=== PATIENT | female | born 1950 | race Caucasian/White ===

== ENCOUNTER 2018-09-28 07:38 | Day surgery (SDC) | payer MEDICARE, MEDICAID ==
[2018-09-28] MEDS ORDERED: MIDAZOLAM 2 MG/2 ML INJ ONE (09:46)
[2018-09-28] MEDS ORDERED: PROPOFOL INJ 200 MG/20 ML VIAL IV ONE (09:46)
[2018-09-28] MEDS ORDERED: PROMETHAZINE HCL INJ 25 MG/1 ML VIAL IV PRN ×3 (10:07→10:52)
[2018-09-28] MEDS ORDERED: DIPHENHYDRAMINE HCL 50 MG/ML VIAL IV PRN (10:07)
[2018-09-28] MEDS ORDERED: FENTANYL CITRATE INJ/PF 100 MCG/2 ML AMPUL IV PRN ×3 (10:07)
[2018-09-28] MEDS ORDERED: OXYCODONE-ACETAMINOPHEN 5-325 MG TABLET PO PRN ×2 (10:07)
[2018-09-28] MEDS ORDERED: MEPERIDINE HCL/PF INJ 25 MG/1 ML DISP.SYRIN IV PRN (10:07)
--- NOTE | 2018-09-28 10:23 | Operative Report ---
Operative Report DATE OF SURGERY: 09/28/18 Operative Report: The risks, benefits and alternatives of the procedure including the risk of bleeding, perforation requiring surgery have been explained to the patient in detail and informed consent is obtained. The patient is taken back to the operating room and placed in a left, lateral decubital position. Timeout was called. Propofol medication is administered. Rectal examination is done which did not reveal any masses, tears or fissures. An Olympus videoscope was introduced into the patient's rectum. It is carefully advanced all the way to the cecum. The cecum was identified by the usual anatomical landmarks including the ileocecal valve as well as the appendiceal office. However the prep on the right side of the colon is not as good. There is solid fecal material present. This was attempted to be irrigated. From this point on the scope was then seq uentially pulled back via the various segments of the colon including the ascending colon, hepatic flexure, transverse colon, splenic flexure, descending colon and finally into the rectosigmoid portions of the colon. Retroflexion maneuver was performed. PREOPERATIVE DIAGNOSIS: Personal history of polyp POSTOPERATIVE DIAGNOSIS: Rectal polyp that was removed via snare polypectomy and retrieved. Internal hemorrhoids. Random biopsies taken in the right side of the colon to rule out lymphocytic, microscopic, collagenous colitis. OPERATION: Colonoscopy with snare polypectomy. Colonoscopy with biopsy SURGEON: MAGDY SPICER ANESTHESIA: LMAC TISSUE REMOVED OR ALTERED: As noted above. COMPLICATIONS: None. ESTIMATED BLOOD LOSS: None. INTRAOPERATIVE FINDINGS: As noted above. PROCEDURE: Patient tolerated the procedure well. No immediate postprocedure complications are noted. Patient discharged in good condition. Discharge date 09/28/2018. Discharge diet: Regular. Discharge activity: Regular. 2-3-week follow-up to discuss findings. Patient is instructed to call the office or proceed to the emergency room should there be any further problems or questions. Wait on the pathology. 3-5-year surveillance colonoscopy. Depending on the pathology of the polyp
[2018-09-28] MEDS ORDERED: ACETAMINOPHEN 325 MG TABLET PO PRN (10:51)
[2018-09-28] MEDS ORDERED: SIMETHICONE 80 MG TAB.CHEW PO PRN (10:52)
[2018-09-28 11:48] VITALS: BP 122/50
== END 2018-09-28 11:30 | disposition home or self-care (01) ==
LOC: OROUT 07:38
PROVIDERS: ATTEND Internal Medicine Gastroenterology
DX: Z12.11 Encounter for screening for malignant neoplasm of colon (principal); K63.5 Polyp of colon; K64.8 Other hemorrhoids; Z86.010 Personal history of colon polyps; E78.5 Hyperlipidemia, unspecified; J44.9 Chronic obstructive pulmonary disease, unspecified; M10.9 Gout, unspecified; E55.9 Vitamin D deficiency, unspecified; G47.33 Obstructive sleep apnea (adult) (pediatric); G40.909 Epilepsy, unspecified, not intractable, without status epilepticus; I34.0 Nonrheumatic mitral (valve) insufficiency; I35.0 Nonrheumatic aortic (valve) stenosis; I37.1 Nonrheumatic pulmonary valve insufficiency; I11.0 Hypertensive heart disease with heart failure; I50.30 Unspecified diastolic (congestive) heart failure; Z79.899 Other long term (current) drug therapy
CPT/HCPCS: 45385; 36415; 84132; 88305 ×2; J2250; J2704; 811

== ENCOUNTER 2019-04-02 09:11 | Emergency (ER) | payer MEDICARE, MEDICAID ==
--- NOTE | 2019-04-02 09:26 | ER Document Report ---
ED Medical Screen (RME) - General Chief Complaint: Seizure Stated Complaint: POSSIBLE SEIZURE Time Seen by Provider: 04/02/19 09:22 Primary Care Provider: DAVID MAYFIELD MD [Primary Care Provider] - Follow up as needed Information source: Patient Notes: Patient presents stating that she had a seizure this morning at 8 AM. Patient states that she has been compliant with taking her antiepileptic medication. Patient denies any changes in her doses of medication. Patient states she is been having 1-2 seizures a day for the past week I have greeted and performed a rapid initial assessment of this patient. A comprehensive ED assessment and evaluation of the patient, analysis of test results and completion of the medical decision making process will be conducted by additional ED providers. TRAVEL OUTSIDE OF THE [place] IN LAST 30 DAYS: No - Related Data Allergies/Adverse Reactions: No Known Allergies Allergy (Verified 04/02/19 09:24) Past Medical History - Social History Chew tobacco use (# tins/day): No Frequency of alcohol use: None Drug Abuse: None - Past Medical History Cardiac Medical History: Reports: Hx Hypertension - on meds Denies: Hx Coronary Artery Disease, Hx Heart Attack Pulmonary Medical History: Denies: Hx Asthma, Hx Bronchitis, Hx COPD, Hx Pneumonia Neurological Medical History: Reports: Hx Seizures - on meds-last week. 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
[2019-04-02 10:54] LABS: ABSOLUTE BASOPHILS # (AUTO) 0.1 10^3/uL (0.0-0.2); ABSOLUTE EOSINOPHILS # (AUTO) 0.1 10^3/uL (0.0-0.6); ABSOLUTE LYMPHOCYTES (AUTO) 2.3 10^3/uL (0.5-4.7); ABSOLUTE MONOCYTES (AUTO) 0.6 10^3/uL (0.1-1.4); BASOPHILS % (AUTO) 0.7 % (0-2); EOSINOPHILS % (AUTO) 1.1 % (0-6); HEMATOCRIT 39.3 % (36.0-47.0); HEMOGLOBIN 13.1 g/dL (12.0-15.5); LYMPHOCYTES % (AUTO) 23.1 % (13-45); MEAN CORPUSCULAR HEMOGLOBIN 31.2 pg (27.0-33.4); MEAN CORPUSCULAR HGB CONC 33.3 g/dL (32.0-36.0); MEAN CORPUSCULAR VOLUME 94 fl (80-97); MONOCYTES % (AUTO) 5.9 % (3-13); PLATELET COUNT 220 10^3/uL (150-450); RED CELL DISTRIBUTION WIDTH 13.7 % (11.5-14.0); SEGMENTED NEUTROPHILS % (AUTO) 69.2 % (42-78); TOTAL CELLS COUNTED % (AUTO) 100 %; WHITE BLOOD COUNT 10.1 10^3/uL (4.0-10.5)
--- NOTE | 2019-04-02 11:04 | RADIOLOGY REPORT (SQ) ---
EXAM DESCRIPTION: KNEE BILATERAL 1-2 VIEWS COMPLETED DATE/TIME: 04/02/2019 10:55 am REASON FOR STUDY: fall COMPARISON: None. NUMBER OF VIEWS: Two views right knee. Two views left knee. TECHNIQUE: AP and lateral radiographic images acquired of the right and left knee. LIMITATIONS: None. FINDINGS: MINERALIZATION: Normal. BONES: Bilateral total knee replacements. No fracture. JOINT: No effusion. SOFT TISSUES: No soft tissue swelling. No radio-opaque foreign body. OTHER: No other significant finding. IMPRESSION: Bilateral total knee replacements. No fracture. TECHNICAL DOCUMENTATION: JOB ID: [id number] [employer]- All Rights Reserved Reading location - IP/workstation name: [email or web address]
[2019-04-02 11:07] LABS: ALKALINE PHOSPHATASE 51 U/L (38-126); ANION GAP 11 (5-19); ASPARTATE AMINO TRANSFERASE 51 U/L (14-36); BILIRUBIN,DIRECT 0.2 mg/dL (0.0-0.4); BILIRUBIN,TOTAL 0.3 mg/dL (0.2-1.3); BLOOD UREA NITROGEN 19 mg/dL (7-20); CARBON DIOXIDE 29 mmol/L (22-30); CHLORIDE 101 mmol/L (98-107); GLUCOSE 125 mg/dL (75-110); POTASSIUM 3.5 mmol/L (3.6-5.0); TOTAL PROTEIN 6.7 g/dL (6.3-8.2)
--- NOTE | 2019-04-02 12:28 | ER Document Report ---
ED General - General Chief Complaint: Probable Seizure Stated Complaint: POSSIBLE SEIZURE Time Seen by Provider: 04/02/19 09:22 Primary Care Provider: DAVID MAYFIELD MD [Primary Care Provider] - Follow up as needed TRAVEL OUTSIDE OF THE [place] IN LAST 30 DAYS: No - HPI Notes: Patient is a 68-year-old female who presents emergency department. She states she has "mall" seizures. She states that her body shakes, but she is awake and alert during them. She is unable to stand up, but is able to perform some tasks. She states she is taking her medications as prescribed. I asked her who her neurologist is, she states she does not have one. She states that at one point she had an EEG, but has never heard the results of it. She has some knee pain, but otherwise denies any other acute complaints or concerns. She does not drive. - Related Data Allergies/Adverse Reactions: No Known Allergies Allergy (Verified 04/02/19 09:24) Past Medical History - General Information source: Patient - Social History Smoking Status: Never Smoker Chew tobacco use (# tins/day): No Frequency of alcohol use: None Drug Abuse: None Family History: Reviewed & Not Pertinent Patient has suicidal ideation: No Patient has homicidal ideation: No - Past Medical History Cardiac Medical History: Reports: Hx Hypertension - on meds Denies: Hx Coronary Artery Disease, Hx Heart Attack Pulmonary Medical History: Denies: Hx Asthma, Hx Bronchitis, Hx COPD, Hx Pneumonia Neurological Medical History: Reports: Hx Seizures - on meds-last week. Denies: Hx Cerebrovascular Accident Musculoskeletal Medical History: Denies Hx Arthritis - Immunizations Hx Diphtheria, Pertussis, Tetanus Vaccination: Yes Review of Systems - Review of Systems Constitutional: No symptoms reported EENT: No symptoms reported Cardiovascular: No symptoms reported Respiratory: No symptoms reported Gastrointestinal: No symptoms reported Genitourinary: No symptoms reported Musculoskeletal: See HPI Skin: No symptoms reported Neurological/Psychological: See HPI Physical Exam - Vital signs Vitals: Temp Pulse Resp BP Pulse Ox 98.6 F 92 16 148/65 H 95 04/02/19 09:20 04/02/19 09:20 04/02/19 09:20 04/02/19 09:20 04/02/19 09:20 - Notes Notes: Vital signs reviewed, please refer to chart. Head is normocephalic, atraumatic. Pupils equal round, reactive to light. Neck is supple without meningismus. Heart is regular rate and rhythm. Lungs are clear to auscultation bilaterally. Abdomen is soft, nontender, normoactive bowel sounds throughout. Extremities without cyanosis, clubbing. Posterior calves are nontender. Peripheral pulses are equal. Skin is warm and dry. Patient is awake, alert, oriented x3. Cranial nerves II - XII are grossly intact without focal neurological deficits. Strength is plus 5 out of 5 bilateral upper and lower extremities. Sensation is intact. Reflexes symmetrical. Intact [id number], rapid alternating movements, [id number]. Course - Re-evaluation Re-evalutation: 04/02/19 12:28 Patient presents emergency department for evaluation. Laboratory investigations and imaging were obtained as above, found to be normal. Patient is remained stable. She has had no seizure activity while here. She is Brad on seizure medications. She is being treated appropriately. She does not drive. She does not have a neurologist or an EEG result. At this time, however, she is completely neurologically intact. If these are seizures, they are likely partial and focal only. She is certainly not having grand mals at this time. She has a primary care provider, who is been caring for the seizures, will have her follow-up with primary care this week, continue to seek out neurology referral. Patient is amenable to this plan. Return to the ED with worsening or concerning symptoms of any sort. - Vital Signs Vital signs: Temp Pulse Resp BP Pulse Ox 98.6 F 92 16 132/56 H 94 04/02/19 09:20 04/02/19 09:20 04/02/19 13:01 04/02/19 13:00 04/02/19 13:01 - Laboratory Result Diagrams: 04/02/19 10:39 04/02/19 10:39 Laboratory results interpreted by me: 04/02/19 10:39 Potassium 3.5 L Glucose 125 H AST 51 H - Diagnostic Test Radiology reviewed: Reports reviewed Radiology results interpreted by me: 04/02/19 12:29 Knee X-Ray 04/02/19 09:25 IMPRESSION: Bilateral total knee replacements. No fracture. - EKG Interpretation by Me Additional EKG results interpreted by me: 04/02/19 12:29 Sinus mechanism with a rate of 78 bpm. Left axis deviation, normal intervals. No acute ST changes concerning for ischemia or infarction. Discharge - Discharge Clinical Impression: Seizure Condition: Stable Disposition: HOME, SELF-CARE Instructions: Seizure, Known Epileptic ([facility]) Additional Instructions: Continue your home medications as prescribed. Follow-up with primary care this week, you need to seek out neurology referral. Return to the ED with worsening or new concerning symptoms of any sort. Referrals: DAVID MAYFIELD MD [Primary Care Provider] - Follow up as needed
[2019-04-02 13:06] VITALS: BP 132/56
--- NOTE | 2019-04-03 00:47 | EKG REPORT ---
SEVERITY:- ABNORMAL ECG - SINUS RHYTHM LEFT AXIS DEVIATION LEFT VENTRICULAR HYPERTROPHY : Confirmed by: Kylah Latif 03-Apr-2019 00:47:01
== END 2019-04-02 13:32 | disposition home or self-care (01) ==
LOC: ER 09:11
DX: R56.9 Unspecified convulsions (principal); M25.569 Pain in unspecified knee; I10 Essential (primary) hypertension; Z79.899 Other long term (current) drug therapy
CPT/HCPCS: 36415; 80053; 80156; 80164; 85025; 93005; 93010; 99284

== ENCOUNTER 2020-02-02 11:26 | Emergency (ER) | payer MEDICARE, MEDICAID ==
--- NOTE | 2020-02-02 11:53 | ER Document Report ---
ED Medical Screen (RME) - General Chief Complaint: Dizziness Stated Complaint: DIZZINESS Time Seen by Provider: 02/02/20 11:45 Primary Care Provider: DAVID MAYFIELD MD [Primary Care Provider] - Follow up as needed Notes: Patient is a 69-year-old female who presents to the emergency department with a chief complaint of dizziness. Patient states that her symptoms started 5 days ago. Describes her dizziness as being on a boat. Patient has history of seizures and a stroke in the past. Patient denies being on blood thinners. Exam: Alert, disoriented to time. Right-sided facial droop, which the patient states she has had for the past few years. I have greeted and performed a rapid initial assessment of this patient. A comprehensive ED assessment and evaluation of the patient, analysis of test results and completion of medical decision making process will be conducted by an additional ED providers. TRAVEL OUTSIDE OF THE [place] IN LAST 30 DAYS: No - Related Data Allergies/Adverse Reactions: No Known Allergies Allergy (Verified 02/02/20 11:45) Past Medical History - Social History Frequency of alcohol use: None Drug Abuse: None - Past Medical History Cardiac Medical History: Reports: Hx Hypertension - on meds Denies: Hx Coronary Artery Disease, Hx Heart Attack Pulmonary Medical History: Denies: Hx Asthma, Hx Bronchitis, Hx COPD, Hx Pneumonia Neurological Medical History: Reports: Hx Seizures - on meds-last week. Denies: Hx Cerebrovascular Accident Musculoskeltal Medical History: Denies Hx Arthritis - Immunizations Hx Diphtheria, Pertussis, Tetanus Vaccination: Yes Physical Exam - Vital signs Vitals: Temp Pulse Resp BP Pulse Ox 98.5 F 83 18 154/62 H 94 02/02/20 11:33 02/02/20 11:33 02/02/20 11:33 02/02/20 11:33 02/02/20 11:33 Course - Vital Signs Vital signs: Temp Pulse Resp BP Pulse Ox 98.5 F 83 18 154/62 H 94 02/02/20 11:33 02/02/20 11:33 02/02/20 11:33 02/02/20 11:33 02/02/20 11:33 Doctor's Discharge - Discharge Referrals: DAVID MAYFIELD MD [Primary Care Provider] - Follow up as needed
--- NOTE | 2020-02-02 12:17 | RADIOLOGY REPORT (SQ) ---
EXAM DESCRIPTION: CT HEAD WITHOUT IMAGES COMPLETED DATE/TIME: 02/02/2020 11:59 am REASON FOR STUDY: AMS;confusion COMPARISON: None. TECHNIQUE: Axial images acquired through the brain without intravenous contrast. Images reviewed wi th bone, brain and subdural windows. Additional sagittal and coronal reconstructions were generated. Images stored on PACS. All CT scanners at this facility use dose modulation, iterative reconstruction, and/or weight based d osing when appropriate to reduce radiation dose to as low as reasonably achievable (ALARA). [facility]: Dose Right [facility]: CareDose [facility]: Dose Right [facility]: Teradose 4D [facility]: [employer] RADIATION DOSE: CT Rad equipment meets quality standard of care and radiation dose reduction techniq ues were employed. CTDIvol: 53.2 mGy. DLP: 991 mGy-cm. mGy. LIMITATIONS: None. FINDINGS: VENTRICLES: Normal size and contour. CEREBRUM: No masses. No hemorrhage. No midline shift. No evidence for acute infarction. Normal gra y/white matter differentiation. No areas of low density in the white matter. CEREBELLUM: Giant cisterna magna. No masses. EXTRAAXIAL SPACES: No fluid collections. No masses. ORBITS AND GLOBE: No intra- or extraconal masses. Normal contour of globe without masses. CALVARIUM: No fracture. PARANASAL SINUSES: No fluid or mucosal thickening. SOFT TISSUES: No mass or hematoma. OTHER: No other significant finding. IMPRESSION: No acute intracranial event. EVIDENCE OF ACUTE STROKE: NO. COMMENT: Pertinent positive or negative findings of the imaging study reported as a CRITICAL EXAM abby Hollins at12:11 on 02/02/2020. Category of Critical Exam: Stroke protocol. Quality ID # [id number]: Final reports with documentation of one or more dose reduction techniques (e.g., Au tomated exposure control, adjustment of the mA and/or kV according to patient size, use of iterative reconstruction technique) TECHNICAL DOCUMENTATION: JOB ID: [id number] 2010 [employer]- All Rights Reserved Reading location - IP/workstation name: [email or web address]
--- NOTE | 2020-02-02 12:21 | ER Document Report ---
ED Dizziness/Weakness - General Chief Complaint: Dizziness Stated Complaint: DIZZINESS Time Seen by Provider: 02/02/20 11:45 Primary Care Provider: DAVID MAYFIELD MD [Primary Care Provider] - Follow up as needed Mode of Arrival: Ambulatory Information source: Patient Notes: Places notes Date: 02/02/20 11:51 Initialization Date: 02/02/20 11:51 ED Medical Screen (RME) - General Chief Complaint: Dizziness Stated Complaint: DIZZINESS Time Seen by Provider: 02/02/20 11:45 Primary Care Provider: DAVID MAYFIELD MD [Primary Care Provider] - Follow up as needed Notes: Patient is a 69-year-old female who presents to the emergency department with a chief complaint of dizziness. Patient states that her symptoms started 5 days ago. Describes her dizziness as being on a boat. Patient has history of seizures and a stroke in the past. Patient denies being on blood thinners. Exam: Alert, disoriented to time. Right-sided facial droop, which the patient states she has had for the past few years. My notes 69-year-old female arrives by POV driven by a neighbor friend. Patient reports she has had dizziness for the past. Patient reports she has no urinary or defecation problems but wears depends. Patient is very vague about her dizziness which has been going on for several days. Patient reports she has had a CVA around 5 years ago but is unsure of where this occurred. She does not know the date the week the month. Her CT was read as negative which was done upon arrival. Patient reports she has had seizures since she was a little girl and has been on Dilantin 300 mg taken all at once as well as Tegretol 2 tablets 3 times daily. She denies any thyroid problems denies any swallowing problems denies any headaches or neck pain or trauma or abuse spider bites animal bites tick bites. Patient denies any fever chills constipation or skin lesions. TRAVEL OUTSIDE OF THE [place] IN LAST 30 DAYS: No - HPI Patient complains to provider of: Altered mental status, Dizziness Onset: Last week Onset/Duration: Sudden, Persistent Quality of pain: No pain Severity: Mild Pain Level: Denies Associated symptoms: Lightheaded Exacerbated by: Movement of head Baseline gait: Walks w/o assistance - Related Data Allergies/Adverse Reactions: No Known Allergies Allergy (Verified 02/02/20 11:45) Past Medical History - General Information source: Patient Cannot obtain history due to: Other - Question of altered mental status versus old CVA effects. Will check for cretin and thyroid disease as well. - Social History Smoking Status: Unknown if Ever Smoked Cigarette use (# per day): No Chew tobacco use (# tins/day): No Smoking Education Provided: No Frequency of alcohol use: None Drug Abuse: None Lives with: Family Family History: Reviewed & Not Pertinent Patient has suicidal ideation: No Patient has homicidal ideation: No - Past Medical History Cardiac Medical History: Reports: Hx Hypertension - on meds Denies: Hx Coronary Artery Disease, Hx Heart Attack Pulmonary Medical History: Denies: Hx Asthma, Hx Bronchitis, Hx COPD, Hx Pneumonia Neurological Medical History: Reports: Hx Seizures - on meds-last week. Denies: Hx Cerebrovascular Accident Musculoskeletal Medical History: Denies Hx Arthritis - Immunizations Hx Diphtheria, Pertussis, Tetanus Vaccination: Yes Review of Systems - Review of Systems Constitutional: See HPI, Weakness EENT: No symptoms reported Cardiovascular: No symptoms reported Respiratory: No symptoms reported Gastrointestinal: No symptoms reported Genitourinary: No symptoms reported Female Genitourinary: No symptoms reported Musculoskeletal: No symptoms reported Skin: No symptoms reported Hematologic/Lymphatic: No symptoms reported Neurological/Psychological: No symptoms reported, Other - dizzy Physical Exam - Vital signs Vitals: Temp Pulse Resp BP Pulse Ox 98.5 F 83 18 154/62 H 94 02/02/20 11:33 02/02/20 11:33 02/02/20 11:33 02/02/20 11:33 02/02/20 11:33 Interpretation: Hypertensive - HEENT Head: Normocephalic, Atraumatic Eyes: Normal Conjunctiva: Normal Cornea: Normal Extraocular movements intact: Yes Eyelashes: Normal Pupils: PERRL Sinus: Normal Nasal: Normal Mouth/Lips: Normal Mucous membranes: Normal Pharynx: Normal, Other - Tongue appears to be larger than average. Neck: Normal - Respiratory Respiratory status: No respiratory distress Chest status: Nontender Breath sounds: Normal Chest palpation: Normal - Cardiovascular Rhythm: Regular Heart sounds: Normal auscultation Murmur: No - Abdominal Inspection: Normal Distension: No distension Bowel sounds: Normal Tenderness: Nontender Organomegaly: No organomegaly - Rectal Hemorrhoids: Other - deferred - Genitourinary Bimanuel exam: Other - deferred - Back Back: Normal - Extremities General upper extremity: Normal inspection General lower extremity: Normal inspection - Neurological Neuro grossly intact: Yes Cognition: Normal Orientation: AAOx4 Gris Coma Scale Eye Opening: Spontaneous Gris Coma Scale Verbal: Oriented [place] Coma Scale Motor: Obeys Commands Gris Coma Scale Total: 15 Speech: Normal Motor strength normal: LUE, RUE, LLE, RLE Sensory: Normal - Psychological Associated symptoms: Flat affect - Skin Skin Temperature: Warm Skin Moisture: Dry Course - Vital Signs Vital signs: Temp Pulse Resp BP Pulse Ox 98.5 F 76 14 111/52 L 96 02/02/20 11:33 02/02/20 14:27 02/02/20 16:01 02/02/20 16:01 02/02/20 16:01 - Laboratory Result Diagrams: 02/02/20 12:15 02/02/20 12:15 Laboratory results interpreted by me: 02/02/20 02/02/20 12:15 12:15 Sodium 136.3 L Phenytoin < 3.0 L Carbamazepine 12.6 H - Diagnostic Test Radiology reviewed: Reports reviewed Discharge - Discharge Clinical Impression: Tegretol-induced dizziness Condition: Good Disposition: HOME, SELF-CARE Instructions: Dizziness ([facility]), Vertigo ([facility]) Additional Instructions: Follow-up with personal doctor this week avoid bending lifting or twisting; encourage fluids try meclizine for dizziness but will have to decrease Tegretol by 1 tablet 3 times daily for 2 days in order to bring Tegretol level from its toxic levels return to ER as needed Prescriptions: Meclizine HCl [Antivert 25 mg Tablet] 25 mg PO TID PRN #21 tablet PRN Reason: Referrals: DAVID MAYFIELD MD [Primary Care Provider] - Follow up as needed
[2020-02-02 12:25] LABS: ABSOLUTE BASOPHILS # (AUTO) 0.1 10^3/uL (0.0-0.2); ABSOLUTE EOSINOPHILS # (AUTO) 0.1 10^3/uL (0.0-0.6); ABSOLUTE LYMPHOCYTES (AUTO) 3.5 10^3/uL (0.5-4.7); ABSOLUTE MONOCYTES (AUTO) 0.4 10^3/uL (0.1-1.4); ABSOLUTE NEUT (AUTO) 4.5 10^3/uL (1.7-8.2); BASOPHILS % (AUTO) 0.8 % (0-2); EOSINOPHILS % (AUTO) 1.4 % (0-6); HEMATOCRIT 39.6 % (36.0-47.0); HEMOGLOBIN 13.4 g/dL (12.0-15.5); MEAN CORPUSCULAR VOLUME 94 fl (80-97); MONOCYTES % (AUTO) 4.2 % (3-13); PLATELET COUNT 223 10^3/uL (150-450); RED CELL DISTRIBUTION WIDTH 13.3 % (11.5-14.0); SEGMENTED NEUTROPHILS % (AUTO) 52.6 % (42-78); TOTAL CELLS COUNTED % (AUTO) 100 %; WHITE BLOOD COUNT 8.6 10^3/uL (4.0-10.5)
[2020-02-02 12:37] LABS: INTERNATIONAL RATION (INR) 0.98; PROTHROMBIN TIME 13.2 SEC (11.4-15.4)
[2020-02-02 12:38] LABS: PARTIAL THROMBOPLASTIN TIME 25.5 SEC (23.5-35.8)
[2020-02-02 12:45] LABS: ALKALINE PHOSPHATASE 48 U/L (38-126); ANION GAP 7 (5-19); ASPARTATE AMINO TRANSFERASE 26 U/L (14-36); BILIRUBIN,TOTAL 0.6 mg/dL (0.2-1.3); BLOOD UREA NITROGEN 18 mg/dL (7-20); CARBON DIOXIDE 29 mmol/L (22-30); CHLORIDE 100 mmol/L (98-107); GLUCOSE 97 mg/dL (75-110); POTASSIUM 4.1 mmol/L (3.6-5.0); TOTAL PROTEIN 6.9 g/dL (6.3-8.2)
[2020-02-02 12:47] LABS: CARBAMAZEPINE 12.6 ug/mL (4.0-12.0)
[2020-02-02 12:51] LABS: PHENYTOIN < 3.0 ug/mL (10.0-20.0)
[2020-02-02 14:00] LABS: APPEARANCE,URINE CLOUDY; BILIRUBIN,URINE NEGATIVE (NEGATIVE); COLOR,URINE YELLOW; GLUCOSE, URINE NEGATIVE (NEGATIVE); KETONES,URINE NEGATIVE (NEGATIVE); LEUKOCYTE ESTERASE,URINE NEGATIVE (NEGATIVE); NITRITE,URINE NEGATIVE (NEGATIVE); PROTEIN,URINE NEGATIVE (NEGATIVE); URINE SPECIFIC GRAVITY 1.013; UROBILINOGEN,URINE NEGATIVE mg/dL (<2.0)
[2020-02-02 16:48] VITALS: BP 127/64
--- NOTE | 2020-02-02 23:01 | EKG REPORT ---
SEVERITY:- BORDERLINE ECG - SINUS RHYTHM LEFT AXIS DEVIATION BORDERLINE T WAVE ABNORMALITIES : Confirmed by: Alexus Romo MD 02-Feb-2020 23:00:41
== END 2020-02-02 17:18 | disposition home or self-care (01) ==
LOC: ER 11:26
DX: R42 Dizziness and giddiness (principal); T42.1X5A Adverse effect of iminostilbenes, initial encounter; R41.0 Disorientation, unspecified; R29.810 Facial weakness; I10 Essential (primary) hypertension; R56.9 Unspecified convulsions; Z79.899 Other long term (current) drug therapy; Z86.73 Personal history of transient ischemic attack (TIA), and cerebral infarction without residual deficits
CPT/HCPCS: 36415; 70450; 80053; 80156; 80185; 81001; 84443; 85025; 85610; 85730; 93005; 93010; 99284